=== PATIENT | male | born 1945 | race Caucasian/White ===

== ENCOUNTER 2019-01-31 15:09 | Inpatient (IN) | payer OTHER ==
[~2019-01-31] VITALS: Ht 172.7 cm; Wt 46.8 kg
[~2019-01-31 15:09] MED LIST: ANAS1TAB PO; ARGI1000 PO; ASPI-496 PO; CARNITINE PO; CARV3.122 PO; CHOL400D3 PO; CYAN50008 PO; CYCL-259 PO; DIAZ10TA4 PO; FOLI0.8C PO; GLUC500T11 PO; HYDR-3245 PO; MAGN500T PO; NIAC500T9 PO; PRAS1TAB3 PO; S-AD400T3 PO; SIMV20TA3 PO; TAUR1000 PO; TEST100V2 IM; UBID1CAP43 PO; WARF4TAB65 PO; [UNRECOGNIZED DRUG - OTHER] PO; [UNRECOGNIZED DRUG - OTHER] SC; alteril PO
[2019-01-31 16:04] LABS: BASOPHILS # (AUTO) 0.02 x10^3/uL (0-0.1); BASOPHILS % (AUTO) 0 % (0-1); EOSINOPHILS # (AUTO) 0.04 x10^3/uL (0-0.4); EOSINOPHILS % (AUTO) 1 % (1-7); LYMPHOCYTES # (AUTO) 3.26 x10^3/uL (1-3.4); LYMPHOCYTES % (AUTO) 45 % (22-44); MD NO; MEAN CORPUSCULAR HEMOGLOBIN 31.5 pg (27.5-34.5); MEAN CORPUSCULAR HGB CONC 31.4 g/dL (33.2-36.2); MEAN CORPUSCULAR VOLUME 100.4 fL (81-97); MONOCYTES # (AUTO) 0.42 x10^3/uL (0.2-0.8); MONOCYTES % (AUTO) 6 % (2-9); NEUTROPHILS # (AUTO) 3.52 x10^3/uL (1.8-6.8); NEUTROPHILS % (AUTO) 49 % (42-75); PLATELET COUNT 222 x10^3/uL (130-400); RED BLOOD COUNT 4.56 x10^6/uL (4.38-5.82); RED CELL DISTRIBUTION WIDTH 17.1 % (9.4-14.8)
--- NOTE | 2019-01-31 16:09 | NUR ---
PT GIVEN WATER PER REQUEST AND URINAL FOR UA. PT STATES HE DOESN'T "WANT TO DRINK THE WATER, I WANT AN IV". PT DENIES ANY DIFFICULTY OR PROBLEMS WITH SWALLOWING, STATES AGAIN HE DOESN'T WANT TO DRINK. PT ALSO STATING HE WON'T PROVIDE URINE SPECIMEN UNTIL HE GETS IV. ATTEMPT TO EDUCATE PT ON LABS, POC. PT APPEARS ANGRY, TAKES DRINK OF WATER PROVIDED AND SPITS IT OUT INTO EMESIS BAG. CALL LIGHT WITHIN REACH.
[2019-01-31 16:16] LABS: ALANINE AMINOTRANSFERASE 21 U/L (12-78); ALBUMIN 2.9 g/dL (3.4-5.0); ANION GAP 7 mmol/L (5-15); CHLORIDE 117 mmol/L (98-107); CREATININE 1.55 mg/dL (0.7-1.3)
[2019-01-31 16:19] LABS: ALKALINE PHOSPHATASE 75 U/L (45-117); BILIRUBIN,TOTAL 0.8 mg/dL (0.2-1.0); TOTAL PROTEIN 8.4 g/dL (6.4-8.2)
--- NOTE | 2019-01-31 16:45 | NUR ---
ERP NOTIFIED OF LABS. ATTEMPT FOR IV X 2 UNSUCCESSFUL.
[2019-01-31] MEDS ORDERED: SODIUM CHLORIDE 0.9% 1,000ML IVBOLUS ONE (17:00)
--- NOTE | 2019-01-31 17:15 | NUR ---
CALL FROM LAB NOTIFYING OF PRELIM POSITIVE HIV. CONFIRMED NO PRIOR HX OF HIV. PT DOES REPORT OF MULTIPLE FEMALE AND MALE PARTNERS AND UNPROTECTED SEX. ERP NOTIFIED OF PRELIM POSITIVE. PT INFORMED BY ERP.
--- NOTE | 2019-01-31 17:59 | NUR ---
IV ESTABLISHED, IVF BOLUS INFUSING. VSS/UPDATED IN COMPUTER. WARM BLANKET PROVIDED.
[2019-01-31] MEDS: LACTATED RINGERS 1,000 ML IV SCH ×3 (18:30→23:04)
[2019-01-31] MEDS ORDERED: TEMAZEPAM 15 MG CAPSULE PO PRN (20:30)
[2019-01-31] MEDS ORDERED: ACETAMINOPHEN 325 MG TABLET PO PRN (20:30)
[2019-01-31] MEDS ORDERED: LIDODERM 5% PATCH TD PRN (20:30)
[2019-01-31] MEDS ORDERED: DOCUSATE 100 MG CAPSULE PO PRN (20:30)
[2019-01-31] MEDS: NICOTINE 21 MG/24 HR PATCH.TD24 TD SCH ×2 (20:30→23:05)
[2019-01-31] MEDS ORDERED: hydrALAzine 20 MG/ML, 1ML IVPush PRN (20:30)
[2019-01-31] MEDS ORDERED: DIAZEPAM 10 MG TABLET PO PRN (21:00)
[2019-01-31] MEDS: SIMVASTATIN 20 MG TABLET PO SCH (23:02)
[2019-01-31] MEDS: HEPARIN 5,000 UNITS/ML, 1ML SQ SCH (23:04)
[2019-02-01 01:05] LABS: ANION GAP 7 mmol/L (5-15); CALCIUM 8.4 mg/dL (8.5-10.1); CHLORIDE 117 mmol/L (98-107); CREATININE 1.28 mg/dL (0.7-1.3)
[2019-02-01 01:08] VITALS: BP 117/71
[2019-02-01 03:35] LABS: MICROSCOPIC AUTO
[2019-02-01 03:37] LABS: CULTURE INDICATED? YES
[2019-02-01] MEDS ORDERED: DIAZEPAM 5 MG TABLET PO PRN (04:30)
[2019-02-01 06:03] LABS: ANION GAP 6 mmol/L (5-15); CALCIUM 8.3 mg/dL (8.5-10.1); CHLORIDE 119 mmol/L (98-107); CREATININE 1.15 mg/dL (0.7-1.3)
[2019-02-01 06:32] LABS: MEAN CORPUSCULAR HEMOGLOBIN 32.5 pg (27.5-34.5); MEAN CORPUSCULAR HGB CONC 32.4 g/dL (33.2-36.2); MEAN CORPUSCULAR VOLUME 100.2 fL (81-97); MEAN PLATELET VOLUME 7.9 fL (7.4-10.4); PLATELET COUNT 205 x10^3/uL (130-400); RED BLOOD COUNT 3.92 x10^6/uL (4.38-5.82); RED CELL DISTRIBUTION WIDTH 17.1 % (9.4-14.8)
[2019-02-01] MEDS: LACTATED RINGERS 1,000 ML IV SCH ×6 (06:56→15:30)
[2019-02-01 06:58] LABS: BASOPHILS # (AUTO) 0.03 x10^3/uL (0-0.1); BASOPHILS % (AUTO) 1 % (0-1); EOSINOPHILS # (AUTO) 0.03 x10^3/uL (0-0.4); EOSINOPHILS % (AUTO) 1 % (1-7); LYMPHOCYTES # (AUTO) 2.41 x10^3/uL (1-3.4); LYMPHOCYTES % (AUTO) 47 % (22-44); MD SCAN; MONOCYTES # (AUTO) 0.45 x10^3/uL (0.2-0.8); MONOCYTES % (AUTO) 9 % (2-9); NEUTROPHILS # (AUTO) 2.17 x10^3/uL (1.8-6.8); NEUTROPHILS % (AUTO) 43 % (42-75)
[2019-02-01 07:50] VITALS: BP 125/77
[2019-02-01] MEDS: HEPARIN 5,000 UNITS/ML, 1ML SQ SCH ×2 (08:40→18:13)
[2019-02-01 12:29] LABS: ANION GAP 7 mmol/L (5-15); CALCIUM 8.4 mg/dL (8.5-10.1); CHLORIDE 117 mmol/L (98-107); CREATININE 1.11 mg/dL (0.7-1.3)
[2019-02-01 14:30] VITALS: BP 128/69
--- NOTE | 2019-02-01 15:59 | NUR ---
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
[2019-02-01] MEDS ORDERED: maalox/diphenh/lido/sucralfate 5 ML PO PRN (16:32)
[2019-02-01] MEDS: NYSTATIN 500,000 UNITS/5 ML UDC PO SCH ×2 (18:17→21:48)
[2019-02-01 18:38] VITALS: BP 125/71
[2019-02-01] MEDS: NICOTINE 21 MG/24 HR PATCH.TD24 TD SCH (20:30)
[2019-02-01] MEDS: SIMVASTATIN 20 MG TABLET PO SCH (21:48)
[2019-02-02] MEDS: LACTATED RINGERS 1,000 ML IV SCH ×2 (00:33→10:32)
[2019-02-02] MEDS: HEPARIN 5,000 UNITS/ML, 1ML SQ SCH ×2 (01:59→10:30)
[2019-02-02 02:00] VITALS: BP 109/69
[2019-02-02 05:14] LABS: BASOPHILS # (AUTO) 0.02 x10^3/uL (0-0.1); BASOPHILS % (AUTO) 1 % (0-1); EOSINOPHILS % (AUTO) 2 % (1-7); LYMPHOCYTES # (AUTO) 2.17 x10^3/uL (1-3.4); LYMPHOCYTES % (AUTO) 47 % (22-44); MD NO; MEAN CORPUSCULAR HEMOGLOBIN 32.3 pg (27.5-34.5); MEAN CORPUSCULAR HGB CONC 32.2 g/dL (33.2-36.2); MEAN CORPUSCULAR VOLUME 100.6 fL (81-97); MEAN PLATELET VOLUME 7.4 fL (7.4-10.4); MONOCYTES % (AUTO) 7 % (2-9); NEUTROPHILS # (AUTO) 2.03 x10^3/uL (1.8-6.8); NEUTROPHILS % (AUTO) 44 % (42-75); PLATELET COUNT 197 x10^3/uL (130-400); RED BLOOD COUNT 3.28 x10^6/uL (4.38-5.82); RED CELL DISTRIBUTION WIDTH 16.4 % (9.4-14.8)
[2019-02-02 05:19] LABS: ALBUMIN 1.9 g/dL (3.4-5.0); ANION GAP 4 mmol/L (5-15); CALCIUM 7.4 mg/dL (8.5-10.1); CHLORIDE 113 mmol/L (98-107)
[2019-02-02 05:22] LABS: ALANINE AMINOTRANSFERASE 13 U/L (12-78); ALKALINE PHOSPHATASE 45 U/L (45-117); BILIRUBIN,TOTAL 0.4 mg/dL (0.2-1.0); CREATININE 0.87 mg/dL (0.7-1.3); TOTAL PROTEIN 5.4 g/dL (6.4-8.2)
[2019-02-02] MEDS: NYSTATIN 500,000 UNITS/5 ML UDC PO SCH ×2 (06:01→10:30)
[2019-02-02 07:25] VITALS: BP 108/55
== END 2019-02-02 13:45 | disposition left against medical advice (07) | DRG 640 ==
LOC: ED 16:56 → EDIP 17:09 → 3NW 18:30
PROVIDERS: ADMIT Hospitalist; ATTEND Hospitalist
DX: E87.0 Hyperosmolality and hypernatremia (principal); N17.0 Acute kidney failure with tubular necrosis; B37.0 Candidal stomatitis; R64 Cachexia; D68.69 Other thrombophilia; I50.40 Unspecified combined systolic (congestive) and diastolic (congestive) heart failure; Z68.1 Body mass index [BMI] 19.9 or less, adult; E78.5 Hyperlipidemia, unspecified; E86.0 Dehydration; F12.90 Cannabis use, unspecified, uncomplicated; I51.3 Intracardiac thrombosis, not elsewhere classified; Z53.21 Procedure and treatment not carried out due to patient leaving prior to being seen by health care provider; F17.210 Nicotine dependence, cigarettes, uncomplicated; H60.90 Unspecified otitis externa, unspecified ear; H66.90 Otitis media, unspecified, unspecified ear; I25.10 Atherosclerotic heart disease of native coronary artery without angina pectoris; I27.20 Pulmonary hypertension, unspecified; I34.0 Nonrheumatic mitral (valve) insufficiency; I48.91 Unspecified atrial fibrillation; M62.84 Sarcopenia; R13.12 Dysphagia, oropharyngeal phase; Z79.01 Long term (current) use of anticoagulants; Z86.12 Personal history of poliomyelitis; Z86.14 Personal history of Methicillin resistant Staphylococcus aureus infection; Z91.19 Patient's noncompliance with other medical treatment and regimen
CPT/HCPCS: 36415; 70450; 71046; 74230; 80048; 80053; 81001; 82607; 84443; 85025; 86361; 86701; 86702; 86780; 87086; 87491; 87536; 87591; 87806; 93306; 96360; G0378; J1644; G0475; J7030; J7120